=== PATIENT | male | born 1960 | race Caucasian/White ===

== ENCOUNTER 2017-08-15 22:22 | Emergency (ER) | payer BC, OTHER ==
[~2017-08-15] VITALS: Ht 182.9 cm; Wt 80.0 kg
[2017-08-15 23:20] VITALS: Ht 182.9 cm; Wt 80.0 kg
[2017-08-16] MEDS ORDERED: LIDOCAINE 2% (MDV) 20 ML INJ INJ STA (01:22)
[2017-08-16] MEDS ORDERED: DIPHTH/TET/ACEL PERTUSS (ADULT) 0.5 ML VIAL IM* ONE (02:00)
[2017-08-16] MEDS ORDERED: AMOX1TAB10 PO (02:34)
[2017-08-16] MEDS ORDERED: HYDR-906 PO (02:34)
--- NOTE | 2017-09-05 14:43 | ERD ---
ER Documentation Chief Complaint Chief Complaint bitten by his own vaccinated dog on the L cheek&abrasion on his R hand@2100 HPI 56-year-old male presenting to hours status post laceration from dog. Patient' s own dog. Laceration of left cheek and right hand. No abnormal behavior lately. He was breaking up his dog probably another dog. Tetanus status unknown. Denies any numbness, tingling, loss of range of motion. Patient has no other complaints and describes no other associated manifestations. Nursing notes have been reviewed and are consistent with history given. ROS All systems reviewed and are negative except as per history of present illness. Medications Home Meds Active Scripts Hydrocodone/Acetaminophen ([place] 5-325 Tablet) 1 Each Tablet, 1 TAB PO Q6H Y for PAIN, #7 TAB Prov:OBDULIA GELLER PA-C 08/16/17 Amoxicillin/Potassium Clav (Amox-Clav 875-125 mg Tablet) 875-125 mg Tab, 1 TAB PO BID for 10 Days, #20 TAB Prov:OBDULIA GELLER PA-C 08/16/17 Allergies Allergies: Coded Allergies: No Known Allergy (Unverified , 08/15/17) PMhx/Soc Medical and Surgical Hx: pt denies Medical Hx History of Surgery: Yes (Api, tonsilectomy) Anesthesia Reaction: No Hx Neurological Disorder: No Hx Respiratory Disorders: No Hx Cardiac Disorders: No Hx Psychiatric Problems: No Hx Miscellaneous Medical Probl: No Hx Alcohol Use: Yes (occasional drinker) Hx Substance Use: No Smoking Status: Never smoker Physical Exam Physical Exam Const: Well-appearing 56-year-old male in no acute distress Head: Atraumatic Eyes: Normal Conjunctiva ENT: Normal External Ears, Nose and Mouth. Neck: Full range of motion..~ No meningismus. Resp: Clear to auscultation bilaterally Cardio: Regular rate and rhythm, no murmurs. Cap refill less than 2 seconds. Radial pulses 2+ bilaterally. Abd: Soft, non tender, non distended. Normal bowel sounds Skin: 7 cm diagonal abrasion on left cheek. Are not affected. 3 cm laceration on the right hand. Back: No midline or flank tenderness Ext: No cyanosis, or edema Neur: Awake and alert Psych: Normal Mood and Affect Results 24 hrs Current Medications Medications (Trade) Dose Ordered Sig/Yesica Route PRN Reason Start Time Stop Time Status Last Admin Dose Admin Lidocaine (Xylocaine 2% (Mdv) 20 ml) 20 ml ONCE STAT INJ 08/16/17 01:22 08/16/17 01:24 DC Diphtheria/ Tetanus/Acell Pertussis (Adacel) 0.5 ml ONCE ONCE IM* 08/16/17 02:00 08/16/17 02:01 DC 08/16/17 02:38 Procedures/MDM Left cheek abrasion about 7 cm diagonally. Small lacerations within the abrasion. Right hand laceration measuring 3 cm. Tendons intact. Neurovascularly intact. No trauma to the eye. Tetanus vaccination given. Wound was cleaned with normal saline and bandaged. Wounds will heal by secondary intention. Augmentin given. I have spoke with the patient regarding their condition and future management. They have verbally responded that they understand their status and treatment plan. The patients vitals are stable, and their current condition is appropriate for discharge. The patient will be given discharge instructions with return precautions. Departure Diagnosis: Primary Impression: Bite wound Condition: Stable Patient Instructions: Wound Care, Animal Bite, General Additional Instructions: You were seen in the emergency department for your laceration which has been closed. Your wound has been cleaned and covered with antibiotic ointment. Please keep this dressing on for 12 hours. After 12 hours take the dressing down and gently clean the wound with ONLY soap and water. If you were given antibiotics, complete the course of treatment as prescribed. Look for signs of infection such as increasing redness, swelling, pain or drainage of pus (yellow/ green fluid). If you see signs of infection, please return to the emergency department immediately. If there are no signs of infection, cover your wound with antibiotic ointment and reapply a dressing. You will form a scar. To keep from scarring too dark, keep your wound covered and out of the sun for the next 6-12 months. Consider using OTC anti-scar creams such as Mederma. Return to the ED for a wound check in 2 days and again for suture removal in 5 days. OBDULIA GELLER PA-C Sep 05, 2017 14:43
== END 2017-08-16 03:15 | disposition home or self-care (01) ==
LOC: FTE 22:22
DX: S01.412A Laceration without foreign body of left cheek and temporomandibular area, initial encounter (principal); W54.0XXA Bitten by dog, initial encounter; Y92.9 Unspecified place or not applicable
CPT/HCPCS: 90471; 90715